=== PATIENT | female | born 1975 | race Caucasian/White ===

== ENCOUNTER 2024-01-15 13:00 | Day surgery (SDC) | payer OTHER ==
[~2024-01-15] VITALS: Ht 162.6 cm; Wt 88.8 kg
[~2024-01-15 13:00] MED LIST: Atropine Sulfate 0.1 MG/ML 10ML SYR ONE; Glycopyrrolate 0.2 MG/ML 1MLVIAL ONE; Lactated Ringer's 1,000 ML IV ONE; Lidocaine 2% 5 ML SDV ONE; Lidocaine HCl/Pf 1% 5 ML VIAL ONE; Methylene Blue 1% 100 MG/10 ML VIAL ONE; Ondansetron HCl 2 MG / ML 2ML Vial ONE; SuccINYLCHOLINE Chloride 100 MG/5 ML 5MLSYR ONE; ePHEDrine Sulfate 50 MG/ML 1ML Injection ONE; propofoL 50 ML IV ONE
[2024-01-15] MEDS ORDERED: Bentyl20 MG PO (14:09)
[2024-01-15] MEDS ORDERED: FOLI1 PO (14:09)
[2024-01-15] MEDS ORDERED: ONDA4 (14:09)
[2024-01-15] MEDS ORDERED: OMEP20ER (14:10)
--- NOTE | 2024-01-15 15:33 | NUR ---
01/15/24 1533 Alisa Nicolas IN WITH GRACE MARTINEZ USING ULTRASOUND FOR IV START
[2024-01-15] MEDS ORDERED: Lactated Ringer's 1,000 ML IV ONE (15:50)
--- NOTE | 2024-01-15 17:05 | NUR ---
01/15/24 1705 Elsa Marcelo INTRAJUGLAR PERIPHERAL IV REMOVED AT 1657, PRESSURE APPLIED FOR [address] BRITTON. DRESSED WITH TAPE AND GAUZE.
== END 2024-01-15 17:30 | disposition home or self-care (01) ==
LOC: ORSCSDS 13:00
PROVIDERS: Specialist
PROC: 0DBB8ZX Excision of Ileum, Via Natural or Artificial Opening Endoscopic, Diagnostic (ICD-10-PCS; principal; 2024-01-15 15:00)
PROC: 0DBE8ZX Excision of Large Intestine, Via Natural or Artificial Opening Endoscopic, Diagnostic (ICD-10-PCS; principal; 2024-01-15 15:00)
PROC: 0DBN8ZX Excision of Sigmoid Colon, Via Natural or Artificial Opening Endoscopic, Diagnostic (ICD-10-PCS; principal; 2024-01-15 15:00)
DX: K50.90 Crohn's disease, unspecified, without complications (principal); K21.9 Gastro-esophageal reflux disease without esophagitis; K64.8 Other hemorrhoids; Z87.891 Personal history of nicotine dependence; Z79.899 Other long term (current) drug therapy; Z68.34 Body mass index [BMI] 34.0-34.9, adult
CPT/HCPCS: 88305; J0330; J0461; J2001; J2405; J2704; J7120; Q9968

== ENCOUNTER 2024-03-18 09:51 | Day surgery (SDC) | payer OTHER ==
[~2024-03-18] VITALS: Ht 162.6 cm; Wt 93.1 kg
[~2024-03-18 09:51] MED LIST changes: -Atropine Sulfate 0.1 MG/ML 10ML SYR ONE; +Bentyl20 MG PO; +FOLI1 PO; -Glycopyrrolate 0.2 MG/ML 1MLVIAL ONE; -Lidocaine 2% 5 ML SDV ONE; -Lidocaine HCl/Pf 1% 5 ML VIAL ONE; -Methylene Blue 1% 100 MG/10 ML VIAL ONE; +OMEP20ER; +ONDA4; -Ondansetron HCl 2 MG / ML 2ML Vial ONE; -SuccINYLCHOLINE Chloride 100 MG/5 ML 5MLSYR ONE; -ePHEDrine Sulfate 50 MG/ML 1ML Injection ONE
[2024-03-18] MEDS ORDERED: Lidocaine HCl 4% 5 ML SDA ONE (12:12)
[2024-03-18] MEDS ORDERED: Lactated Ringer's 1,000 ML IV ONE (12:25)
--- NOTE | 2024-03-18 12:36 | NUR ---
03/18/24 1236 Jalyn Leroy PT. VERBALIZES HAVING ENOUGH OF THE LIDOCAINE NEBULIZER. PT. VERBALIZES IT'S MAKING HER NAUSEATED & DOES FEEL NUMB TO THE BACK OF HER THROAT. DR. BAEZ NOTIFIED.
[2024-03-18] MEDS ORDERED: Ondansetron HCl 2 MG / ML 2ML Vial ONE (12:56)
== END 2024-03-18 13:30 | disposition home or self-care (01) ==
LOC: ORSCSDS 09:51
PROVIDERS: Specialist
PROC: 0DB98ZX Excision of Duodenum, Via Natural or Artificial Opening Endoscopic, Diagnostic (ICD-10-PCS; principal; 2024-03-18 11:45)
PROC: 0DB68ZX Excision of Stomach, Via Natural or Artificial Opening Endoscopic, Diagnostic (ICD-10-PCS; principal; 2024-03-18 11:45)
PROC: 0DB58ZX Excision of Esophagus, Via Natural or Artificial Opening Endoscopic, Diagnostic (ICD-10-PCS; principal; 2024-03-18 11:45)
DX: K50.90 Crohn's disease, unspecified, without complications (principal); K21.9 Gastro-esophageal reflux disease without esophagitis; K29.70 Gastritis, unspecified, without bleeding; Z79.899 Other long term (current) drug therapy
CPT/HCPCS: 88305; 88342; J2003; J2405; J2704; J7120

== ENCOUNTER 2024-08-25 09:44 | Day surgery (SDC) | payer OTHER ==
[~2024-08-25] VITALS: Ht 162.6 cm; Wt 97.0 kg
[2024-08-25] MEDS ORDERED: Lactated Ringer's 1,000 ML IV ONE (11:46)
== END 2024-08-25 12:48 | disposition home or self-care (01) ==
LOC: ORSCSDS 09:44
PROVIDERS: Specialist
PROC: 0DBL8ZX Excision of Transverse Colon, Via Natural or Artificial Opening Endoscopic, Diagnostic (ICD-10-PCS; principal; 2024-08-25 12:00)
PROC: 0DBB8ZX Excision of Ileum, Via Natural or Artificial Opening Endoscopic, Diagnostic (ICD-10-PCS; principal; 2024-08-25 12:00)
PROC: 0DBN8ZX Excision of Sigmoid Colon, Via Natural or Artificial Opening Endoscopic, Diagnostic (ICD-10-PCS; principal; 2024-08-25 12:00)
DX: K50.90 Crohn's disease, unspecified, without complications (principal); K21.9 Gastro-esophageal reflux disease without esophagitis; K63.89 Other specified diseases of intestine; Z90.49 Acquired absence of other specified parts of digestive tract; Z87.891 Personal history of nicotine dependence; Z79.899 Other long term (current) drug therapy
CPT/HCPCS: 88305; J2704; J7120